=== PATIENT | female | born 1950 | race Caucasian/White ===

== ENCOUNTER → 2019-02-16 | Outpatient (CLI) | payer MEDICARE ==
--- NOTE | 2019-02-17 08:48 | BD ---
EXAMINATION TYPE: Axial Bone Density DATE OF EXAM: 02/16/2019 COMPARISON: 06/14/2009 CLINICAL HISTORY: post menopausal female. Osteoporosis screening. Height: 5' 3 1/2 Weight: 204 FRAX RISK QUESTIONS: Secondary Osteoporosis: RISK FACTORS HISTORY OF: Postmenopausal woman: y MEDICATIONS: Thyroid Medications: Which medication: Levothyroxine How Lon years Additional Medications: cholesterol, tremors, depression, Additional History: EXAM MEASUREMENTS: Bone mineral densitometry was performed using the [employer] System. Bone mineral density as measured about the Lumbar spine is: ----- L1-L4(G/cm2): 1.063 T Score Values are as follows: ----- L2: -0.9 ----- L3: -0.6 ----- L4: -0.9 ----- L1-L4: -1.0 Bone mineral density has: Increased 0.2since study of: 06/14/2009 Bone mineral density about the R hip (g/cm2): 0.809 Bone mineral density about the L hip (g/cm2): 0.852 T Score values are as follows: -----R Neck: -1.7 -----L Neck: -1.3 -----R Total: -0.9 -----L Total: -0.5 Bone mineral density has: Decreased -2.9since study of: 06/14/2009 IMPRESSION: Osteopenia (T Score between -2.5 and -1). There is slightly increased risk of fracture and the patient may be considered for treatment. Re-Screen 2-5 years. NOTE: T-SCORE=SD OF THE YOUNG ADULT MEAN.
--- NOTE | 2019-02-17 10:24 | MM ---
Reason for exam: screening (asymptomatic). Last mammogram was performed 7 years and 1 month ago. History: Patient is postmenopausal. Physical Findings: A clinical breast exam by your physician is recommended on an annual basis and results should be correlated with mammographic findings. MG 3D Screening Mammo W/Cad Bilateral CC and MLO view(s) were taken. Prior study comparison: January 25, 2012, bilateral digital screening mammo w/CAD. June 14, 2009, bilateral digital screening mammogram. There are scattered fibroglandular densities. No suspicious abnormality. Right middle depth upper outer quadrant masses x 2 are stable back to 2009. No significant changes when compared with prior studies. ASSESSMENT: Benign, BI-RAD 2 RECOMMENDATION: Routine screening mammogram of both breasts in 1 year.
== END | disposition home or self-care (01) ==
LOC: RADMAMWWP 15:27
PROVIDERS: ATTEND Family Medicine
DX: Z12.31 Encounter for screening mammogram for malignant neoplasm of breast (principal); M85.80 Other specified disorders of bone density and structure, unspecified site; Z78.0 Asymptomatic menopausal state
CPT/HCPCS: 77063; 77067; 77080